=== PATIENT | female | born 1955 | race Caucasian/White ===

== ENCOUNTER → 2017-12-20 | Outpatient (CLI) | payer BC ==
[~2017-12-20] MED LIST: AMIT-104 PO; CALC-771 PO; CARV12.578 PO; DYA PO; MOME17SP9 NS; MON10 PO; MULT-820 PO; OMEP40CA48 PO; PRAV20TA66 PO; SCOT TD; SIMV-42 PO; WARF2.5T11 PO; WARF5TAB23 PO; [UNRECOGNIZED DRUG - CODE] TD
--- NOTE | 2017-12-23 09:06 | RADIOLOGY IMAGING REPORT ---
[facility] PATIENT NAME: FANNY HARDY : [id number] MR: [id number] V: [id number] EXAM DATE: [id number] ORDERING PHYSICIAN: NICHO BERGER TECHNOLOGIST: Mona Forbes PROCEDURE:BILATERAL DIGITAL SCREENING MAMMOGRAM WITH CAD ASSISTED INTERPRETATION & 3D TOMOSYNTHESIS COMPARISON:Prior mammograms 12/05/16, 11/23/15, 07/29/14, 07/22/14, 07/21/13, 06/26/12. INDICATIONS:SCREENING FINDINGS: Moderately heterogeneous fibroglandular tissue is seen throughout the breasts. The patient has had bilateral breast reductions sense the previous mammograms. A battery pack projects in the upper portion of the Left breast on the Left MLO view. There is no demonstration of malignant appearing mass, malignant appearing calcifications or other secondary sign of malignancy in either breast. DIAGNOSTIC CATEGORY 2--BENIGN FINDING. RECOMMENDATIONS: ROUTINE MAMMOGRAM AND CLINICAL EVALUATION. IMPRESSION: BIRADS 2: Benign finding. There are postsurgical changes from bilateral breast reduction. Dictated by: Vicki Stahl M.D. on 12/20/2017 at 15:39 Transcribed by: NORMA on 12/20/2017 at 15:49 Approved by: Vicki Stahl M.D. on 12/23/2017 at 9:05 [facility]
== END ==
LOC: MAMO 04:08
PROVIDERS: ATTEND Family Medicine
DX: Z12.31 Encounter for screening mammogram for malignant neoplasm of breast (principal)
CPT/HCPCS: 77063; 77067

== ENCOUNTER → 2018-12-12 | Outpatient (CLI) | payer BC ==
--- NOTE | 2018-12-13 03:22 | RADIOLOGY IMAGING REPORT ---
FACILITY: [facility] PATIENT NAME: Vania Scanlon : 1955 MR: [id number] V: [id number] EXAM DATE: ORDERING PHYSICIAN: JUSTINE ROSS TECHNOLOGIST: [facility] Patient: Vania Scanlon : 1955 Visit/Account:[id number] Date of Sevice: 12/12/2018 EXAMINATION: Thyroid ultrasound HISTORY: Weight gain, difficulty swallowing COMPARISON: None. FINDINGS: Thyroid size: The right thyroid lobe measures 4.5 x 2.2 x 2.2 cm. The left thyroid lobe measures 5.9 x 2.4 x 1.9 cm. The isthmus measures 0.5 cm. Thyroid nodules: Right lobe: There are multiple right thyroid lobe nodules the majority of which are less than 1.5 cm in size and low in suspicion based on morphology. Within the right mid thyroid there is a focal area of parenchymal heterogeneity measuring up to 2.5 x 2.5 cm. This could alternatively represent an ill-defined nodule. Left lobe: Multiple left thyroid nodules many of which measure less than 1.5 cm and are low in suspic ion based on morphology. A 1.9 x 1.5 cm isoechoic upper pole nodule is present. Focal parenchymal heterogeneity versus nodule measuring 1.5 x 1.3 cm in the left mid lobe. Isoechoic 1.6 x 1.6 cm left lower thyroid nodule. Isthmus: None. Thyroid vascularity: Normal. Thyroid parenchyma: Homogeneous. IMPRESSION: 1. Multiple varying sized thyroid nodules many of which are low in suspicion and measure less than 1. 5 cm which statistically represent benign adenomas 2. 2.5 cm area of focal benign parenchymal heterogeneity versus an ill-defined nodule in the right m id thyroid lobe. Given the possibility of an ill-defined nodule in this area fine-needle aspiration m ay be warranted based on ISAAC criteria described below to exclude suspicious pathology in this area. 2. Two left thyroid lobe nodules are low in suspicion based on morphology but which measure up to 1.5 cm. Notably these statistically represent benign adenomas given the multiplicity of nodularity in th e thyroid lobes. These do meet the criteria to recommend fine-needle aspiration based on ISAAC criteria given size. Fine-needle aspiration of these nodules could be performed as needed based on ISAAC criteria. Alternati vely 6 month ultrasound follow-up could be utilized to document stability of these nodules. 3. Additional focal area of benign parenchymal heterogeneity versus a focal ill-defined 1.5 cm nodule in the left mid thyroid lobe. Fine-needle aspiration could be performed of this finding based on ISAAC criteria described below. Six-month ultrasound follow-up could alternatively be utilized to document stability. REFERENCE: 2015 [place] [employer] Management Guidelines for Adult Patients with Thyroid Nodules and D ifferentiated Thyroid Cancer: The [place] [employer] (ISAAC) Guidelines Task Force on Thyroid Nodules and Differentiated Thyroid Cancer. SONOGRAPHIC PATTERNS: Benign: Purely cystic nodules (no solid component); estimated risk of malignancy <1 percent; no biops y recommended. Very Low Suspicion: Spongiform or partially cystic nodules without any of the sonographic features de scribed in low, intermediate, or high suspicion patterns; estimated risk of malignancy <3 percent; co nsider FNA at > (or equal to) 2 cm (Observation without FNA is also a reasonable option). Low Suspicion: Isoechoic or hyperechoic solid nodule, or partially cystic nodule with eccentric solid areas, without microcalcification, irregular margin or ETE (extra-thyroidal extension), or taller th an wide shape; estimated risk of malignancy 5-10 percent; recommend FNA at > (or equal to)1.5 cm. Intermediate Suspicion: Hypoechoic solid nodule with smooth margins without microcalcifications, ETE (extra-thyroidal extension), or taller than wide shape; estimated risk of malignancy 10-20 percent; r ecommend FNA at > (or equal to) 1 cm High Suspicion: Solid hypoechoic nodule or solid hypoechoic comp onent of a partially cystic nodule with one or more of the following features: irregular margins (inf iltrative, microlobulated), microcalcifications, taller than wide shape, rim calcifications with smal l extrusive soft tissue component, evidence of ETE (extra-thyroidal extension); estimated risk of mal ignancy >70-90 percent; recommend FNA at > (or equal to) 1 cm. NOTES: Although a sonographically suspicious subcentimeter thyroid nodule without evidence of extrathyroidal extension or sonographically suspicious lymph nodes may be observed with close sonographic follow-up rather than pursuing immediate FNA, patient age and preference may modify decision-making. A > 50% interval increase in nodule volume and/or development of new suspicious sonographic features are felt to be a valid reasons for potential re-aspiration of a nodule previously shown to have benig n FNA cytology. Report Dictated By: Elias Killian MD at 12/13/2018 2:40 AM Report E-Signed By: Elias Killian MD at 12/13/2018 2:56 AM WSN:[id number]
== END ==
LOC: US 07:29
PROVIDERS: ATTEND Physician Assistant
DX: E04.2 Nontoxic multinodular goiter (principal)
CPT/HCPCS: 76536

== ENCOUNTER → 2018-12-23 | Outpatient (CLI) | payer BC ==
[~2018-12-23] MED LIST changes: +BARIUM SULFATE 148 GM POWDER ONE
--- NOTE | 2018-12-23 15:26 | RADIOLOGY IMAGING REPORT ---
FACILITY: [facility] PATIENT NAME: Vania Scanlon : 1955 MR: [id number] V: [id number] EXAM DATE: ORDERING PHYSICIAN: JUSTINE ROSS TECHNOLOGIST: Location: [facility] Patient: Vania Scanlon : 1955 Visit/Account:[id number] Date of Sevice: 12/23/2018 Exam type: ESOPH VIDEO SWALLOWING History: Dysphasia Comparison: None. Findings: The modified swallow was performed by the speech pathologist. Fluoroscopic assistance was provided. Patient received thin and nectar thick barium in addition to a barium tablet and various food substa nces. Mild oral dysphagia and mild oral pharyngeal dysphasia was noted. Please see the speech patho logist report for complete details. The dose area product was 433.23 micro-Trammell per meter squared. IMPRESSION: 1. As above Report Dictated By: Vicki Stahl MD at 12/23/2018 3:17 PM Report E-Signed By: Vicki Stahl MD at 12/23/2018 3:19 PM WSN:[id number]
== END ==
LOC: RAD 00:41
PROVIDERS: ATTEND Physician Assistant
DX: R13.11 Dysphagia, oral phase (principal); R13.13 Dysphagia, pharyngeal phase
CPT/HCPCS: 74230

== ENCOUNTER → 2019-02-09 | Outpatient (CLI) | payer BC ==
[~2019-02-09] MED LIST changes: -BARIUM SULFATE 148 GM POWDER ONE
--- NOTE | 2019-02-10 08:28 | RADIOLOGY IMAGING REPORT ---
FACILITY: [facility] PATIENT NAME: FANNY HARDY : [id number] MR: [id number] V: [id number] EXAM DATE: [id number] ORDERING PHYSICIAN: NICHO BERGER TECHNOLOGIST: Jacinta Cartagena PROCEDURE: BILATERAL DIGITAL SCREENING MAMMOGRAM WITH CAD ASSISTED INTERPRETATION & 3D TOMOSYNTHESIS REASON FOR STUDY: Screening. FAMILY HISTORY OF BREAST CANCER: None reported FAMILY HISTORY OF OVARIAN CANCER: Mother BREAST PROCEDURES/TREATMENTS: Bilateral reduction mammoplasties in 2016 COMPARISON: Mammograms 12/20/17, 12/05/16, 11/23/15, 07/29/14, 07/22/14, 07/21/13 VIEWS OBTAINED: Bilateral 2D & 3D full field CC & MLO projections & bilateral 2D full field XCC projections. BREAST DENSITY: The breasts are heterogeneously dense which can obscure small masses. MAMMOGRAM FINDINGS: There is a pacemaker battery pack projecting over the upper portion of the Left breast posterior depth on the Left MLO view. When compared to the post reduction mammoplasty mammograms the parenchymal pattern has remained stable when allowing for difference in mammographic technique & patient positioning. DIAGNOSTIC CATEGORY 2--BENIGN FINDING. RECOMMENDATIONS: ROUTINE MAMMOGRAM AND CLINICAL EVALUATION. IMPRESSION: BIRADS 2: Benign finding. Dictated by: Vicki Stahl M.D. on 02/09/2019 at 16:15 Transcribed by: GRACIE on 02/10/2019 at 7:45 Approved by: Vicki Stahl M.D. on 02/10/2019 at 8:22 [facility]
== END ==
LOC: MAMO 00:49
PROVIDERS: ATTEND Family Medicine
DX: Z12.31 Encounter for screening mammogram for malignant neoplasm of breast (principal)
CPT/HCPCS: 77063; 77067